=== PATIENT | male | born 1955 | race Two or more races ===

== ENCOUNTER → 2016-11-11 | Outpatient (CLI) | payer OTHER ==
[~2016-11-11] MED LIST: ATOR1TAB21 PO; HYDR12.55 PO; OMEP40CA2 PO; PARO30TA PO
--- NOTE | 2016-11-11 15:06 | REP ---
RIGHT ANKLE SERIES: Four views. HISTORY: Injury. FINDINGS: Four views right ankle demonstrate moderate anterolateral soft-tissue swelling. Ankle mortise is intact. No fracture is seen. There is fragmented Achilles calcaneal spurring. IMPRESSION: Soft-tissue swelling. No fracture seen. Signed by Jose Garcia MD 11/11/2016 03:09 P
--- NOTE | 2016-11-11 15:45 | REP ---
RIGHT FOOT SERIES: Four views of the right foot are performed. I see no acute fracture or dislocation. There is mild posterior calcaneal spurring. There is mild to moderate joint space narrowing with subchondral sclerosis and spurring at the first metatarsal phalangeal joint. IMPRESSION: Degenerative changes without fracture or dislocation. Signed by Dario Al MD 11/11/2016 04:11 P
== END ==
LOC: M LRY 14:01
PROVIDERS: ATTEND Nurse Practitioner Family
DX: S99.911A Unspecified injury of right ankle, initial encounter (principal); X58.XXXA Exposure to other specified factors, initial encounter; Y92.9 Unspecified place or not applicable; Y99.8 Other external cause status

== ENCOUNTER → 2020-11-04 | Outpatient (CLI) | payer OTHER ==
[~2020-11-04] MED LIST changes: +MECL-86; -OMEP40CA2 PO; +OMEP40CA4 PO; +PARO20TA3 PO; -PARO30TA PO; +PARO30TA65 PO
== END ==
LOC: M LABSMTC 11:24
PROVIDERS: ATTEND Anesthesiology
DX: Z20.828 Contact with and (suspected) exposure to other viral communicable diseases (principal); Z11.59 Encounter for screening for other viral diseases

== ENCOUNTER 2020-11-09 09:59 | Day surgery (SDC) | payer OTHER ==
[~2020-11-09] VITALS: Ht 165.1 cm; Wt 81.1 kg
[~2020-11-09 09:59] MED LIST changes: +NS 1,000 ML IV ONE
[2020-11-09] MEDS ORDERED: LIDOCAINE 2% 100MG/5ML SDV (FOR ANES.) As Ordered ONE (11:09)
[2020-11-09] MEDS ORDERED: propofoL 200 MG/20 ML VIAL As Ordered ONE ×2 (11:09→13:11)
--- NOTE | 2020-11-09 13:22 | ROOR ---
Patient Name: Jose Alberto Laguerre Procedure Date: 11/09/2020 12:56 PM Date of : 1955 Age: 64 Room: [facility] Gender: Male Note Status: Finalized Procedure: Colonoscopy Indications: High risk colon cancer surveillance: Personal history of colonic polyps Providers: Lion Constantino MD Referring MD: BEAR UREÑA DO Requesting Provider: Medicines: Monitored Anesthesia Care Complications: No immediate complications. Procedure: Pre-Anesthesia Assessment: - The heart rate, respiratory rate, oxygen saturations, blood pressure, adequacy of pulmonary ventilation, and response to care were monitored throughout the procedure. The Colonoscope was introduced through the anus and advanced to the terminal ileum, with identification of the appendiceal orifice and IC valve. The colonoscopy was performed without difficulty. The patient tolerated the procedure well. The quality of the bowel preparation was good. Findings: The perianal and digital rectal examinations were normal. Three sessile polyps were found in the hepatic flexure and ascending colon. The polyps were 4 to 6 mm in size. These polyps were removed with a cold snare. Resection and retrieval were complete. Mild sigmoid diverticulosis and small internal hemorrhoids. The exam was otherwise without abnormality on direct and retroflexion views. Impression: - Three 4 to 6 mm polyps at the hepatic flexure and in the ascending colon, removed with a cold snare. Resected and retrieved. - Mild sigmoid diverticulosis and small internal hemorrhoids. - The examination was otherwise normal on direct and retroflexion views. Recommendation: - Repeat colonoscopy in 3 years for surveillance. Procedure Code(s): --- Professional --- 18054, Colonoscopy, flexible; with removal of tumor(s), polyp(s), or other lesion(s) by snare technique Diagnosis Code(s): --- Professional --- K63.5, Polyp of colon Z86.010, Personal history of colonic polyps CPT copyright 2019 [employer]. All rights reserved. The codes documented in this report are preliminary and upon online user experience strategist review may be revised to meet current compliance requirements. Lion Constantino MD Lion Constantino MD 11/09/2020 1:22:20 PM Electronically signed by Lion Constantino MD Number of Addenda: 0 Note Initiated On: 11/09/2020 12:56 PM Estimated Blood Loss: Estimated blood loss: none.
[2020-11-09 13:46] VITALS: BP 114/65
== END 2020-11-09 13:48 | disposition home or self-care (01) ==
LOC: M OPP 09:59
PROVIDERS: ATTEND Internal Medicine Gastroenterology
DX: Z12.11 Encounter for screening for malignant neoplasm of colon (principal); Z86.010 Personal history of colon polyps; D12.2 Benign neoplasm of ascending colon; K57.30 Diverticulosis of large intestine without perforation or abscess without bleeding; Z79.899 Other long term (current) drug therapy; Z88.8 Allergy status to other drugs, medicaments and biological substances

== ENCOUNTER 2023-02-25 12:03 | Day surgery (SDC) | payer MEDICARE, OTHER ==
[~2023-02-25] VITALS: Ht 165.1 cm; Wt 83.1 kg
[~2023-02-25 12:03] MED LIST changes: +AMLO1TAB24 PO; +BUSP10TA PO; +PARO30TA4 PO; +VENL37.598 PO
[2023-02-25] MEDS ORDERED: fentaNYL 100 MCG/2 ML INJECTION As Ordered ONE (12:36)
[2023-02-25] MEDS ORDERED: LIDOCAINE 2% 100MG/5ML SDV (FOR ANES.) As Ordered ONE (13:40)
[2023-02-25] MEDS ORDERED: propofoL 200 MG/20 ML VIAL As Ordered ONE (13:48)
[2023-02-25 14:03] VITALS: TEMP 99
[2023-02-25 14:25] VITALS: BP 130/75; O2SAT 96
== END 2023-02-25 14:29 | disposition home or self-care (01) ==
LOC: M OPP 12:03
PROVIDERS: ATTEND Internal Medicine Gastroenterology
DX: K44.9 Diaphragmatic hernia without obstruction or gangrene (principal); R12 Heartburn; Z79.02 Long term (current) use of antithrombotics/antiplatelets; Z79.899 Other long term (current) drug therapy; Z88.4 Allergy status to anesthetic agent
CPT/HCPCS: 43235; J3010